=== PATIENT | female | born 1940 | race Caucasian/White ===

== ENCOUNTER → 2017-09-15 | Outpatient (REF) | LOC: ZLAB.WCH 16:14 | DX: Z01.89 Encounter for other specified special examinations (principal) ==

== ENCOUNTER → 2017-09-26 | Outpatient (CLI) | payer MEDICARE, BC ==
[~2017-09-26] VITALS: Ht 165.1 cm; Wt 55.3 kg
[~2017-09-26] MED LIST: ADVIL200 MG PO; ALBUTEROL0.83 MG/ML IH; CIPRO 500MG TA500 MG PO; FLOVENT 220MCG7.9 GM IH; LEVOXYL0.1 MG PO; LEVOXYL0.15 MG PO; NYSTATIN OR100 MU/ML PO
[2017-09-26 12:27] VITALS: BP 118/35; PULSE 92
[2017-09-26 14:05] VITALS: BP 129/65; PULSE 97
== END ==
LOC: COL.RAD 11:58
DX: R22.31 Localized swelling, mass and lump, right upper limb (principal); R22.1 Localized swelling, mass and lump, neck
CPT/HCPCS: 25757